=== PATIENT | male | born 1985 | race American Indian/Alaskan Native ===

== ENCOUNTER 2018-03-13 19:24 | Emergency (ER) | payer SELFPAY ==
[2018-03-13 19:49] VITALS: BP 125/85
[2018-03-13] MEDS ORDERED: VEETIDS PO ONE (23:54)
[2018-03-13] MEDS ORDERED: NORCO 7.5/325 PO ONE (23:54)
--- NOTE | 2018-03-13 23:58 | Emergency Department Report ---
ED ENT HPI - General Chief complaint: Dental/Oral Stated complaint: TOOTHACHE Time Seen by Provider: 03/13/18 23:53 Source: patient Mode of arrival: Ambulatory Limitations: No Limitations - History of Present Illness Initial comments: 32-year-old -[place] male comes in complaining of left sided toothache with swelling 2 days. Patient denies any fever or chills he does admit to having too bad Teeth. He reports his tried [id number] Tylenol and ibuprofen is not helping his pain at all. MD complaint: tooth pain -: days(s) (2) Location: tooth # (17,18) Severity scale (0 -10): 10 Quality: aching, sharp, constant Consistency: constant Improves with: none Worsens with: eating, movement Context- Dental: history of dental caries, poor dental care Associated Symptoms: gum swelling. denies: fever, sore throat, tinnitus - Related Data Previous Rx's Medication Instructions Recorded Last Taken Type Ibuprofen [Motrin 600 MG tab] 600 mg PO Q8H PRN #30 tablet 03/13/18 Unknown Rx Penicillin Vk [Veetids TAB] 500 mg PO TID #21 tablet 03/13/18 Unknown Rx traMADol [Ultram 50 MG tab] 50 mg PO Q6HR PRN #20 tablet 03/13/18 Unknown Rx Allergies Allergy/AdvReac Type Severity Reaction Status Date / Time No Known Allergies Allergy Unverified 03/13/18 19:49 ED Dental HPI - General Chief complaint: Dental/Oral Stated complaint: TOOTHACHE Time Seen by Provider: 03/13/18 23:53 Source: patient Mode of arrival: Ambulatory Limitations: No Limitations - Related Data Previous Rx's Medication Instructions Recorded Last Taken Type Ibuprofen [Motrin 600 MG tab] 600 mg PO Q8H PRN #30 tablet 03/13/18 Unknown Rx Penicillin Vk [Veetids TAB] 500 mg PO TID #21 tablet 03/13/18 Unknown Rx traMADol [Ultram 50 MG tab] 50 mg PO Q6HR PRN #20 tablet 03/13/18 Unknown Rx Allergies Allergy/AdvReac Type Severity Reaction Status Date / Time No Known Allergies Allergy Unverified 03/13/18 19:49 ED Review of Systems ROS: Stated complaint: TOOTHACHE Other details as noted in HPI ENT: dental pain (with swelling) ED Past Medical Hx - Past Medical History Previous Medical History?: No - Surgical History Past Surgical History?: No - Social History Smoking Status: Current Every Day Smoker Substance Use Type: None - Medications Home Medications: Home Medications Medication Instructions Recorded Confirmed Last Taken Type Ibuprofen [Motrin 600 MG tab] 600 mg PO Q8H PRN #30 tablet 03/13/18 Unknown Rx Penicillin Vk [Veetids TAB] 500 mg PO TID #21 tablet 03/13/18 Unknown Rx traMADol [Ultram 50 MG tab] 50 mg PO Q6HR PRN #20 tablet 03/13/18 Unknown Rx ED Physical Exam - General Limitations: No Limitations General appearance: alert, in no apparent distress - Expanded ENT Exam Expanded Teeth exam: Present: dental caries, dental tenderness # (17,18), gingival enlargement, other (left lower jaw swelling with tenderness) - Respiratory Respiratory exam: Present: normal lung sounds bilaterally. Absent: respiratory distress - Cardiovascular Cardiovascular Exam: Present: tachycardia ED Course Vital Signs 03/13/18 19:45 Temperature 99.1 F Pulse Rate 92 H Respiratory 16 Rate Blood Pressure 125/85 O2 Sat by Pulse 100 Oximetry ED Medical Decision Making - Medical Decision Making Patient has been evaluated by this provider fast track. [place] 7.5 mg and penicillin VK 500 mg ordered for patient. Discussed the patient we would discharge him on antibiotics and tramadol as well as ibuprofen and patient is to follow-up with dentistry. Patient verbalizes understanding. Critical care attestation.: If time is entered above; I have spent that time in minutes in the direct care of this critically ill patient, excluding procedure time. ED Disposition Clinical Impression: Dental abscess Disposition: [id number] TO HOME OR SELFCARE Is pt being admited?: No Does the pt Need Aspirin: No Condition: Stable Instructions: Dental Abscess (ED), Penicillin V (By mouth), Tramadol (By mouth) , Ibuprofen (By mouth) Additional Instructions: Complete antibiotics as prescribed. Take pain medication as needed. It is very important for you to follow up with dental to have this tooth either extracted or repaired. Prescriptions: Ibuprofen [Motrin 600 MG tab] 600 mg PO Q8H PRN #30 tablet PRN Reason: Pain Penicillin Vk [Veetids TAB] 500 mg PO TID #21 tablet traMADol [Ultram 50 MG tab] 50 mg PO Q6HR PRN #20 tablet PRN Reason: Pain Referrals: PRIMARY CARE, [Primary Care Provider] - 3-5 Days [facility] [Provider Group] - 3-5 Days [facility] [Outside] - 3-5 Days [facility] [Outside] - 3-5 Days Forms: Work/School Release Form(ED)
== END 2018-03-14 00:30 | disposition home or self-care (01) ==
LOC: ED 19:24
DX: K04.7 Periapical abscess without sinus (principal); F17.200 Nicotine dependence, unspecified, uncomplicated
CPT/HCPCS: 99282

== ENCOUNTER 2018-11-18 16:06 | Emergency (ER) | payer SELFPAY ==
[2018-11-18 16:11] VITALS: BP 130/77
--- NOTE | 2018-11-18 16:21 | Emergency Department Report ---
ED ENT HPI - General Chief complaint: Dental/Oral Stated complaint: TOOTHACHE Time Seen by Provider: 11/18/18 16:15 Source: patient Mode of arrival: Ambulatory Limitations: No Limitations - History of Present Illness Initial comments: This is a 33-year-old male nontoxic, well nourished in appearance, no acute signs of distress presents to the ED for dental pain. Patient denies follow-up with dentist. Denies any facial swelling. Patient denies any trauma. Patient denies any head pain, neck pain or back pain. Patient denies any chest pain, shortness of breath, fever, chills, nausea, vomiting, headache or stiff neck. Patient is alert and oriented 3. Patient denies any drug allergies significant past medical history. MD complaint: tooth pain -: week(s) Location: tooth # 1 - pain Severity: mild Severity scale (0 -10): 8 Quality: aching Consistency: constant Improves with: none Worsens with: none Context- Dental: history of dental caries, poor dental care Associated Symptoms: gum swelling, toothache. denies: fever, cough, pain with swallowing, sore throat, tinnitus, hearing loss, discharge from ear, rhinorrhea - Related Data Previous Rx's Medication Instructions Recorded Last Taken Type Ibuprofen [Motrin 600 MG tab] 600 mg PO Q8H PRN #30 tablet 03/13/18 Unknown Rx Penicillin Vk [Veetids TAB] 500 mg PO TID #21 tablet 03/13/18 Unknown Rx traMADol [Ultram 50 MG tab] 50 mg PO Q6HR PRN #20 tablet 03/13/18 Unknown Rx Acetaminophen/Codeine [Tylenol 1 tab PO Q6H PRN #12 tab 11/18/18 Unknown Rx /Codeine # 3 tab] Amoxicillin/K Clav Tab [Augmentin 1 tab PO Q12HR #20 tab 11/18/18 Unknown Rx 875 mg] Chlorhexidine Mouthwash [Peridex] 15 ml MM BID #1 bottle 11/18/18 Unknown Rx Allergies Allergy/AdvReac Type Severity Reaction Status Date / Time No Known Allergies Allergy Verified 11/18/18 16:07 ED Dental HPI - General Chief complaint: Dental/Oral Stated complaint: TOOTHACHE Time Seen by Provider: 11/18/18 16:15 Source: patient Mode of arrival: Ambulatory Limitations: No Limitations - Related Data Previous Rx's Medication Instructions Recorded Last Taken Type Ibuprofen [Motrin 600 MG tab] 600 mg PO Q8H PRN #30 tablet 03/13/18 Unknown Rx Penicillin Vk [Veetids TAB] 500 mg PO TID #21 tablet 03/13/18 Unknown Rx traMADol [Ultram 50 MG tab] 50 mg PO Q6HR PRN #20 tablet 03/13/18 Unknown Rx Acetaminophen/Codeine [Tylenol 1 tab PO Q6H PRN #12 tab 11/18/18 Unknown Rx /Codeine # 3 tab] Amoxicillin/K Clav Tab [Augmentin 1 tab PO Q12HR #20 tab 11/18/18 Unknown Rx 875 mg] Chlorhexidine Mouthwash [Peridex] 15 ml MM BID #1 bottle 11/18/18 Unknown Rx Allergies Allergy/AdvReac Type Severity Reaction Status Date / Time No Known Allergies Allergy Verified 11/18/18 16:07 ED Review of Systems ROS: Stated complaint: TOOTHACHE Other details as noted in HPI Constitutional: denies: chills, fever Eyes: denies: eye pain, eye discharge, vision change ENT: dental pain. denies: ear pain, throat pain Respiratory: denies: cough, shortness of breath, wheezing Cardiovascular: denies: chest pain, palpitations Endocrine: no symptoms reported Gastrointestinal: denies: abdominal pain, nausea, diarrhea Genitourinary: denies: urgency, dysuria Musculoskeletal: denies: back pain, joint swelling, arthralgia Skin: denies: rash, lesions Neurological: denies: headache, weakness, paresthesias Psychiatric: denies: anxiety, depression Hematological/Lymphatic: denies: easy bleeding, easy bruising ED Past Medical Hx - Social History Smoking Status: Current Every Day Smoker Substance Use Type: None - Medications Home Medications: Home Medications Medication Instructions Recorded Confirmed Last Taken Type Ibuprofen [Motrin 600 MG tab] 600 mg PO Q8H PRN #30 tablet 03/13/18 Unknown Rx Penicillin Vk [Veetids TAB] 500 mg PO TID #21 tablet 03/13/18 Unknown Rx traMADol [Ultram 50 MG tab] 50 mg PO Q6HR PRN #20 tablet 03/13/18 Unknown Rx Acetaminophen/Codeine [Tylenol 1 tab PO Q6H PRN #12 tab 11/18/18 Unknown Rx /Codeine # 3 tab] Amoxicillin/K Clav Tab [Augmentin 1 tab PO Q12HR #20 tab 11/18/18 Unknown Rx 875 mg] Chlorhexidine Mouthwash [Peridex] 15 ml MM BID #1 bottle 11/18/18 Unknown Rx ED Physical Exam - General Limitations: No Limitations General appearance: alert, in no apparent distress - Head Head exam: Present: atraumatic - Eye Eye exam: Present: normal appearance - Expanded ENT Exam Expanded Ear exam: Present: normal external inspection Mouth exam: Present: normal external inspection. Absent: drooling, trismus, muffled voice Teeth exam: Present: dental caries, fractured tooth #, dental tenderness #, gingival enlargement, other (no facial swelling. no abscess.) Throat exam: Positive: normal inspection - Neck Neck exam: Present: normal inspection, full ROM. Absent: tenderness, meningismus, lymphadenopathy - Back Exam Back exam: Present: normal inspection, full ROM - Neurological Exam Neurological exam: Present: alert, oriented X3 - Psychiatric Psychiatric exam: Present: normal affect, normal mood - Skin Skin exam: Present: warm, dry, intact, normal color. Absent: rash ED Course Vital Signs 11/18/18 16:10 Temperature 98.5 F Pulse Rate 70 Respiratory 18 Rate Blood Pressure 130/77 [Left] O2 Sat by Pulse 99 Oximetry - Reevaluation(s) Reevaluation #1: 11/18/18 16:18 Patient is speaking in full sentences with no signs of distress noted. ED Medical Decision Making - Medical Decision Making Patient was instructed to Follow-up with a dentist doctor in 3-5 days or if symptoms worsen and continue return to emergency room as soon as possible. At time of discharge, the patient does not seem toxic or ill in appearance. No acute signs of distress noted. Patient agrees to discharge treatment plan of care. No further questions noted by the patient. Critical care attestation.: If time is entered above; I have spent that time in minutes in the direct care of this critically ill patient, excluding procedure time. ED Disposition Clinical Impression: Dental caries, Gingivitis Disposition: TO HOME OR SELFCARE Is pt being admited?: No Does the pt Need Aspirin: No Condition: Stable Instructions: Acetaminophen/Codeine (By mouth), Dental Caries (ED), Gingivitis (ED) Additional Instructions: Follow-up with a dentist doctor in 3-5 days or if symptoms worsen and continue return to emergency room as soon as possible. Prescriptions: Amoxicillin/K Clav Tab [Augmentin 875 mg] 1 tab PO Q12HR #20 tab Chlorhexidine Mouthwash [Peridex] 15 ml MM BID #1 bottle Acetaminophen/Codeine [Tylenol /Codeine # 3 tab] 1 tab PO Q6H PRN #12 tab PRN Reason: Pain , Severe (7-10) Referrals: PRIMARY CARE, [Referring] - 3-5 Days ZI RUIZ MD [Staff Physician] - 3-5 Days [facility] [Outside] - 3-5 Days Forms: Work/School Release Form(ED)
== END 2018-11-18 17:25 | disposition home or self-care (01) ==
LOC: ED 16:06
DX: K02.9 Dental caries, unspecified (principal); K05.10 Chronic gingivitis, plaque induced; F17.200 Nicotine dependence, unspecified, uncomplicated
CPT/HCPCS: 99282

== ENCOUNTER 2020-09-16 13:13 | Emergency (ER) | payer SELFPAY ==
[2020-09-16 13:21] VITALS: BP 149/92
--- NOTE | 2020-09-16 14:32 | Emergency Department Report ---
Chief Complaint: Urogenital-Male Stated Complaint: STD/PENIS DISCHARGE Time Seen by Provider: 09/16/20 13:45 - HPI History of Present Illness: This pleasant 35-year-old male presents the emerge department chief complaint of of intermittent dysuria, and discharge that started yesterday and a painful bump at the urethral meatus that he noticed over the past few days. He is unsure if he may have a sexual transmitted disease and like to be checked for all STDs. He denies any past medical history, current medications or known allergy medications. - ROS Review of Systems: He denies any associated fever, chills, sweats, headache, dizziness, blurry vision, nausea, vomit, diarrhea, chest pain or shortness of breath. - Exam Vital Signs: Vital Signs 09/16/20 09/16/20 13:20 13:22 Temperature 122.0 F H 98.3 F Pulse Rate 72 Respiratory 18 Rate Blood Pressure 149/92 O2 Sat by Pulse 100 Oximetry Physical Exam: GENERAL APPEARANCE: Well-developed, well-nourished, no acute distress HEENT: Normocephalic and atraumatic. No scleral icterus. Pupils are equal, round, and reactive to light and accommodation. No conjunctival injection is noted. Oropharynx is clear. Mouth revealed good dentition, no lesions. Tympanic membranes are clear. NECK: Supple. Trachea is midline. No evidence of thyroid enlargement. No lymphadenopathy or tenderness. CHEST: Symmetric. Nontender to palpation. LUNGS: Breath sounds are equal and clear bilaterally. No wheezes, rhonchi, or rales. HEART: Regular rate and rhythm with normal S1 and S2. No murmurs, gallops, or rubs. BREASTS: Symmetrical. No skin or nipple retractions. No nipple discharges or masses. ABDOMEN: Soft, flat, and benign. No mass, tenderness, guarding, or rebound. No organomegaly or hernia. Bowel sounds are present. No CVA tenderness or flank mass. GENITOURINARY: Normal testicular exam, no abdominal tenderness, no lesions other than at the urethral meatus there is a suspicious possibly condyloma-like lesion that measures 2 mm. RECTAL: Deferred EXTREMITIES: No cyanosis, clubbing, or edema. No lower extreme edema, negative Homans sign bilaterally NEUROLOGIC: No focal sensory or motor deficits are noted. Gait is normal. Cranial nerves II through XII are intact. Deep tendon reflexes are intact. PSYCHIATRIC: The patient is awake, alert, and oriented x3. Recent and remote memory is intact. Appropriate mood and affect. SKIN: Warm, dry, and well perfused. Good turgor. No lesions, nodules or rashes are noted. No onychomycosis. LYMPHATICS: No cervical, axillary, or groin adenopathy is noted. MSE screening note: Focused history and physical exam performed. Due to findings the following was ordered: ED Medical Decision Making - Medical Decision Making Patient is nontoxic in no acute distress. I did educate the patient unfortunately we were unable to work him up for STDs and I recommend he follow- up with the health department or urology which I will provide for him. I suspect this lesion is likely a condyloma secondary to a wart. Recommend he follow-up for evaluation and possible biopsy or testing for this and possible treatment. - Differential Diagnosis Condyloma acuminata, urethritis, syphilis ED Disposition for MSE Clinical Impression: Condyloma acuminatum of penis Disposition: MED SCREENING EXAM-LEFT Is pt being admited?: No Condition: Stable Instructions: Human Papillomavirus Referrals: [facility]Outside] - 3-5 Days TRUDY CONNOR MD [Staff Physician] - 3-5 Days Time of Disposition: 14:31
== END 2020-09-16 14:28 | disposition left against medical advice (07) ==
LOC: ED 13:13
DX: R36.9 Urethral discharge, unspecified (principal); Z53.21 Procedure and treatment not carried out due to patient leaving prior to being seen by health care provider